=== PATIENT | female | born 1995 | race Caucasian/White ===

== ENCOUNTER 2018-02-15 13:04 | Emergency (ER) | payer OTHER ==
[2018-02-15] MEDS ORDERED: Silver Sulfadiazine 1% Cream (25 gm) TP STA (13:30)
--- NOTE | 2018-02-15 13:35 | ED PDOC ---
Arrival/HPI - General Chief Complaint: Burn Time Seen by Provider: 02/15/18 13:30 Historian: Patient - History of Present Illness Narrative History of Present Illness (Text): 02/15/18 13:32 23yo female who present to ED for a burn to her left hand. States she accidentally spilled hot water on her hand, while trying to make tea. Reports mild stinging pain to the hand. Denies any other complaint. Past Medical History - Provider Review Nursing Documentation Reviewed: Yes - Psychiatric Hx Substance Use: No - Anesthesia Hx Anesthesia: No Hx Anesthesia Reactions: No Hx Malignant Hyperthermia: No Family/Social History - Physician Review Nursing Documentation Reviewed: Yes Family/Social History: Unknown Family HX Smoking Status: Never Smoked Hx Alcohol Use: No Hx Substance Use: No Allergies/Home Meds Allergies/Adverse Reactions: Allergies No Known Allergies Allergy (Verified 02/15/18 13:16) Review of Systems - Physician Review All systems were reviewed & negative as marked: Yes - Review of Systems Constitutional: Normal Eyes: Normal ENT: Normal Respiratory: Normal Cardiovascular: Normal Gastrointestinal: Normal Genitourinary Female: Normal Musculoskeletal: Normal Skin: Other (Burn to left hand) Neurological: Normal Endocrine: Normal Hemo/Lymphatic: Normal Psychiatric: Normal Physical Exam Vital Signs Reviewed: Yes Temperature: Afebrile Blood Pressure: Normal Pulse: Regular Respiratory Rate: Normal Appearance: Positive for: Well-Appearing, Non-Toxic, Comfortable Pain Distress: None Mental Status: Positive for: Alert and Oriented X 3 - Systems Exam Head: Present: Atraumatic, Normocephalic Pupils: Present: PERRL Extroacular Muscles: Present: EOMI Conjunctiva: Present: Normal Mouth: Present: Moist Mucous Membranes Neck: Present: Normal Range of Motion Respiratory/Chest: Present: Clear to Auscultation, Good Air Exchange. No: Respiratory Distress, Accessory Muscle Use Cardiovascular: Present: Regular Rate and Rhythm, Normal S1, S2. No: Murmurs Abdomen: No: Tenderness, Distention, Peritoneal Signs Back: Present: Normal Inspection Upper Extremity: Present: Normal Inspection. No: Cyanosis, Edema Lower Extremity: Present: Normal Inspection. No: Edema Neurological: Present: GCS=15, CN II-XII Intact, Speech Normal Skin: Present: Warm, Dry, Normal Color, Erythematous (Area of erythema noted to left volar hand. No blister. No abrasion). No: Rashes Psychiatric: Present: Alert, Oriented x 3, Normal Insight, Normal Concentration Medical Decision Making ED Course and Treatment: 02/15/18 17:58 PT in ED for 1st degree burn wound was gently irrigated with NS. Silverdiene applied and dressed PT referred to [facility] burn unit - Medication Orders Current Medication Orders: Silver Sulfadiazine (Silvadene 1% 25 Gm) 25 gm TP STAT STA Stop: 02/15/18 13:31 Disposition/Present on Arrival - Present on Arrival Any Indicators Present on Arrival: No History of DVT/PE: No History of Uncontrolled Diabetes: No Urinary Catheter: No History of Decub. Ulcer: No History Surgical Site Infection Following: None - Disposition Have Diagnosis and Disposition been Completed?: Yes Diagnosis: Burn of hand Disposition: HOME/ ROUTINE Disposition Time: 13:35 Patient Plan: Discharge Condition: STABLE Discharge Instructions (ExitCare): [place] Additional Instructions: Follow up with your doctor Return to ED for any new or worsening symptoms Prescriptions: RX: Silver Sulfadiazine 1% 25 gm [Silvadene 1% 25 gm] 25 gm TP BID #1 cream Referrals: Pascale Hernandez MD [Medical Doctor] - Follow up with primary Forms: [employer] (Malay)
[2018-02-15 14:04] VITALS: BP 125/87; PULSE 93; RESP 18; TEMP 98.2; O2SAT 98
== END 2018-02-15 14:04 | disposition home or self-care (01) ==
LOC: ED 13:04
DX: T23.102A Burn of first degree of left hand, unspecified site, initial encounter (principal); X11.8XXA Contact with other hot tap-water, initial encounter; Y92.9 Unspecified place or not applicable